=== PATIENT | female | born 1945 | race Caucasian/White ===

== ENCOUNTER 2016-06-12 07:24 | Day surgery (SDC) | payer OTHER ==
[2016-06-12] MEDS ORDERED: ONDANSETRON 4 MG/2 ML VIAL IVP ONE (07:33)
[2016-06-12] MEDS ORDERED: ceFAZolin 2 GM/DEXTROSE 100 ML IV ONE (07:33)
[2016-06-12] MEDS ORDERED: NS 1,000 ML IV SCH (07:45)
[2016-06-12] MEDS ORDERED: LIDO/EPI 1% **for epidural** 30 ML SDV ONE (08:24)
[2016-06-12] MEDS ORDERED: SODIUM TETRADECYL SULFATE 60 MG/2 ML VIAL IV ONE (08:24)
[2016-06-12] MEDS ORDERED: fentaNYL 100 MCG/2 ML INJ ONE ×2 (09:01→10:19)
[2016-06-12] MEDS ORDERED: MIDAZOLAM 2 MG/2 ML VIAL ONE ×2 (09:01→10:19)
--- NOTE | 2016-06-12 19:42 | IR ---
Right Lower Extremity Ablation, ALT Multivessel Sclerotherapy Five Stab Phlebectomy Indication: Symptomatic right lower extremity varicosities. Please see prior ultrasound for details . Informed Consent: Obtained from the patient. Risks and benefits were discussed. Crosscutting Measure: Patient's current list of medications including all known prescriptions, over- the-counters, herbals, and vitamin/mineral/dietary supplements are reviewed. Medications' name, dosa ge, frequency, and route of administration are confirmed. Patient is a non-smoker. Prophylactic Antibiotic: Ancef, 2 grams, was ordered and administered for antimicrobial prophylaxis. Discontinuation of Prophylactic Antibiotic: Prophylactic antibiotic was given within 4 hours prior t o incision. There was an order to discontinue the antibiotic within 24 hours of procedure end time. VTE Prophylaxis: VTE prophylaxis is not medically necessary for this procedure. Technique: Patient is placed in supine position. A "timeout" procedure was performed to identify th e correct patient and the correct procedure. 1% Xylocaine was used for local anesthetic. All elemen ts of maximal sterile barrier technique, including cap, mask, sterile gown, sterile gloves, large natalya rile sheet, hand hygiene, and 2% chlorhexidine for cutaneous antisepsis, followed. When ultrasound i s used, sterile gel and probe covers are used. Ultrasound evaluation of potential access site was performed. After successfully identifying a paten t vessel, ultrasound guidance was used to puncture the vessel. A permanent recording was created for the patient's record. When ultrasound is used, sterile gel and probe covers are used. The ALT is identified. It is accessed under ultrasound guidance with a Micropuncture needle, followe d by placement of wire and Micropuncture sheath. Sheath was then capped. Multivessel sclerotherapy is performed throughout the anterior right thigh, lateral thigh, and latera l calf, along mapped out varicosities. 1% SDS Microfoam is used. Tumescent anesthesia is delivered along the short segment of the ALT proximally. Laser ablation is p erformed, delivering 9177 pulses, 1101 joules, over 183 seconds. Tumescent anesthesia is delivered along the mapped out varicosities, and five stab phlebectomy was pe rformed, interrupting the varicose veins and removing some of them. The patient tolerated the procedure well. Medication: 4.5 mg Versed, 225 micrograms fentanyl, 0933 to 1028. Impression: Multimodality treatment of right lower extremity varicose veins, as above. Plan: Compression stocking application. The patient is to return tomorrow for treatment of the left leg.
== END 2016-06-12 13:50 | disposition home or self-care (01) ==
LOC: FIMAGING 07:24
PROVIDERS: ATTEND Radiology Diagnostic Radiology
PROC: 065Y3ZZ Destruction of Lower Vein, Percutaneous Approach (ICD-10-PCS; principal; 2016-06-12 10:40)
DX: I83.891 Varicose veins of right lower extremity with other complications (principal)
CPT/HCPCS: J0690; J2250; J3010

== ENCOUNTER 2016-06-13 07:26 | Day surgery (SDC) | payer OTHER ==
[2016-06-13] MEDS ORDERED: NALOXONE HCL 0.4 MG/ML INJ ONE ×2 (07:34→08:05)
[2016-06-13] MEDS ORDERED: FLUMAZENIL 0.5 MG/5 ML MDV IVP ONE (07:34)
[2016-06-13] MEDS ORDERED: fentaNYL 100 MCG/2 ML INJ ONE ×3 (07:35→10:58)
[2016-06-13] MEDS ORDERED: MIDAZOLAM 2 MG/2 ML VIAL ONE ×3 (07:35→10:58)
[2016-06-13] MEDS ORDERED: CEFAZOLIN 2 GM/DEXTROSE/100 ML BAG IV ONE (08:05)
[2016-06-13] MEDS ORDERED: LIDO/EPI 1% **for epidural** 30 ML SDV ONE (08:45)
[2016-06-13] MEDS ORDERED: SODIUM TETRADECYL SULFATE 60 MG/2 ML VIAL IV ONE (08:46)
[2016-06-13] MEDS ORDERED: PROMETHAZINE HCL 25 MG/ML VIAL ONE (11:05)
[2016-06-13] MEDS ORDERED: IBUPROFEN 200 MG TAB PO ONE (12:21)
--- NOTE | 2016-06-15 09:09 | IR ---
Laser Ablation, Left Greater Saphenous Vein Multivessel Sclerotherapy. Thirteen Stab Phlebectomy Indication: Symptomatic left lower extremity venous stasis cellulitis. Please see prior ultrasound and consultations for details. Informed consent: Obtained from the patient. Risks and benefits were discussed. Crosscutting Measure: Patient's current list of medications including all known prescriptions, over- the-counters, herbals, and vitamin/mineral/dietary supplements are reviewed. Medications' name, dosa ge, frequency, and route of administration are confirmed. Patient is a non-smoker. Prophylactic Antibiotic: Ancef, 2 gm, was ordered and administered for antimicrobial prophylaxis. Discontinuation of Prophylactic Antibiotic: Prophylactic antibiotic was given within 4 hours prior t o incision. There was an order to discontinue the antibiotic within 24 hours of procedure end time. VTE Prophylaxis: VTE prophylaxis is not medically necessary for this procedure. Technique: Patient is placed in supine position. A "timeout" procedure was performed to identify th e correct patient and the correct procedure. 1% Xylocaine was used for local anesthetic. All elemen ts of maximal sterile barrier technique, including cap, mask, sterile gown, sterile gloves, large natalya rile sheet, hand hygiene, and 2% chlorhexidine for cutaneous antisepsis, followed. When ultrasound i s used, sterile gel and probe covers are used. Ultrasound evaluation of potential access site was performed. After successfully identifying a paten t vessel, ultrasound guidance was used to puncture the vessel. A permanent recording was created for the patient's record. When ultrasound is used, sterile gel and probe covers are used. The greater saphenous vein was accessed under ultrasound guidance at the level of the medial knee. M icropuncture sheath is left in place and capped. Multivessel sclerotherapy is performed throughout the mapped out varicosities, medial calf, lateral t high, and popliteal fossa, with 1% SDS. Tumescent anesthesia is delivered along the course of the great saphenous vein, and laser ablation wa s performed. A total of 2910 joules delivered over 485 seconds. Tumescent anesthesia was then delivered along the mapped out varicosities. Thirteen stab phlebectomy was performed removing large segments of varicose veins. Medication: 2 gm Ancef, 12.5 mg Phenergan, 4.5 mg Versed, 2 50 mcg fentanyl, 0950 to 1121 hours. Impressions 1. Multimodality treatment for symptomatic left lower extremity varicosities, as above. 2. Application of compression stocking discussed in detail with the patient today. 3. Follow up in two weeks.
== END 2016-06-13 15:25 | disposition home or self-care (01) ==
LOC: FIMAGING 07:26
PROVIDERS: ATTEND Radiology Diagnostic Radiology
PROC: 3E033TZ Introduction of Destructive Agent into Peripheral Vein, Percutaneous Approach (ICD-10-PCS; 2016-06-13)
PROC: 06DY4ZZ Extraction of Lower Vein, Percutaneous Endoscopic Approach (ICD-10-PCS; 2016-06-13)
PROC: 065Q3ZZ Destruction of Left Saphenous Vein, Percutaneous Approach (ICD-10-PCS; principal; 2016-06-13 11:30)
DX: I83.892 Varicose veins of left lower extremity with other complications (principal); I73.9 Peripheral vascular disease, unspecified
CPT/HCPCS: J0690; J2250; J2310; J2550; J3010

== ENCOUNTER → 2016-06-21 | Outpatient (CLI) | payer OTHER ==
[~2016-06-21] MED LIST: ALTEPLASE 2 MG VIAL ONE
--- NOTE | 2016-06-21 20:45 | IR ---
Interventional Consult TPA Lysis Relevant history: About a week after bilateral multimodality varicose vein treatment, consisting mos tly of sclerotherapy and phlebectomy. The patient presents today because of an area of pretty significant tenderness at the medial right th igh and to a milder extent at the medial left calf. She also shows me a lump that is at the palmar a spect of the right hand. Her IV placement was at the dorsal aspect of the right hand. Informed Consent: Obtained from the patient. Risks and benefits were discussed. Cross Cutting Measure: Patient's current list of medications including all known prescriptions, over -the-counters, herbals, and vitamin/mineral/dietary supplements are reviewed. Medications' name, dos age, frequency, and route of administration are confirmed. Patient is a non-smoker. Prophylactic Antibiotic: Cefazolin was not ordered and administered for antimicrobial prophylaxis be cause it was not medically necessary. VTE Prophylaxis: There is not an order for VTE prophylaxis to be given within 24 hours of the proced ure end time. VTE prophylaxis was not given because it was not medically necessary. Technique: Patient is placed in supine position. A "timeout" procedure was performed to identify th e correct patient and the correct procedure. 1% Xylocaine was used for local anesthetic. All eleme nts of maximal sterile barrier technique, including cap, mask, sterile gown, sterile gloves, large st erile sheet, hand hygiene, and 2% chlorhexidine for cutaneous antisepsis, followed. Ultrasound evaluation of potential access site was performed. After successfully identifying a paten t vessel, ultrasound guidance was used to puncture the vessel. A permanent recording was created for the patient's record. When ultrasound is used, sterile gel and probe covers are used. The ultrasound evaluation of the tender areas in the right leg indeed confirm areas of trapped blood. 18-gauge needle over 10 mL syringe was used to aspirate some of the trapped blood. I did not get m uch out of the thigh portion. I got a couple drops out of the calf portion. Using a smaller needle, 1 mg of TPA mixed in 5 mL normal saline was then injected into the most bulky portion of this thrombosed vein. I am hoping this will at least help symptoms locally. Ultrasound of the right palm shows a very superficial subdermal lesion. I did not see this communica ting with any of the surrounding venous structures. Even though this lesion has a purplish discolora tion to it, I do not think at this point this represents a thrombosed vein. Physical Exam: The patient indeed has multiple areas of bruising consistent with the phlebectomy sit es. The incisions of the phlebectomies have healed very well. There are no signs of infection. Otherwise, the patient states that the previously present heavy sensations are completely gone at thi s point. Assessment 1. Areas of trapped blood causing phlebitis. Incision drainage performed without alleviating much, however. 2. Bruising as anticipated given early stage of posttreatment. 3. Good clinical outcome at this point from a symptomatic standpoint. Recommendations 1. Warm compress and gentle massage to areas of phlebitis. 2. Ibuprofen. 3. Because of the degree of pain the patient is complaining for the medial thigh lesion, I did give the patient a prescription for a Medrol Dosepak to help with inflammation. 4. Continued application of thigh high compression or pantyhose, if applicable. This will indeed he lp speed up recovery of the areas of trapped blood. 5. Injected TPA may also help with the area of phlebitis in the thigh very locally. 6. Pending things are going the right course, she should see me back in the clinic in two months fro m the time of the procedure, sooner if needed. The above are explained in detail with the patient, who expressed understanding. Total [id number] consultation was one hour today.
== END ==
LOC: FIMAGING 12:38
PROVIDERS: ATTEND Radiology Diagnostic Radiology
DX: I80.8 Phlebitis and thrombophlebitis of other sites (principal); I83.892 Varicose veins of left lower extremity with other complications; I83.891 Varicose veins of right lower extremity with other complications
CPT/HCPCS: J2997